=== PATIENT | male | born 2000 | race Caucasian/White ===

== ENCOUNTER → 2018-01-15 | Outpatient (CLI) | payer BC ==
--- NOTE | 2018-01-15 16:41 | Diagnostic Imaging Report ---
INDICATION: Dyspnea with chest tightness over the last two days. FINDINGS: PA and lateral views. Lungs are well aerated. There is no evidence of air-trapping. There are no infiltrates. No evidence of segmental atelectasis. Heart is not enlarged. There is no pulmonary edema. No hilar adenopathy. No pneumothorax or pleural effusion. No bony abnormalities. IMPRESSION: Normal PA and lateral chest. Dictated by: Dictated on workstation # [id number]
== END ==
LOC: RAD 15:48
PROVIDERS: ATTEND Nurse Practitioner Family
DX: R06.00 Dyspnea, unspecified (principal); R07.89 Other chest pain
CPT/HCPCS: 71046

== ENCOUNTER → 2018-05-02 | Outpatient (CLI) | payer BC ==
--- NOTE | 2018-05-02 12:20 | Diagnostic Imaging Report ---
PROCEDURE: MR imaging abdomen without contrast. TECHNIQUE: Multiplanar, multisequence MR imaging of the abdomen was performed without contrast. INDICATION: Family history of pancreatic carcinoma (twin sister). There are no previous studies available for comparison. FINDINGS: The pancreas was visualized. The pancreas is not enlarged and there is no abnormal signal arising from the pancreas to suggest a mass lesion. The liver is homogeneous and not enlarged. There is no focal mass involving the liver and biliary tree is not abnormally distended. The gallbladder, bile duct, spleen, kidneys, adrenals, aorta and inferior vena cava are unremarkable for an acute abnormality. The stomach is partially filled with fluid and consequently difficult to assess. There is no obvious gastric abnormality evident. The lung bases are clear. There is no abnormal signal arising from the osseous structures to suggest bone edema or fracture. IMPRESSION: 1. There is no evidence for an acute abnormality of the abdomen. 2. The pancreas is homogeneous and does not appear to be enlarged. There is no sign of a pancreatic mass. 3. Given the patient's history, I would recommend that the patient undergo genetic testing for the pancreatic carcinoma gene. 4. These results were discussed with Kala Pace APRN. Dictated by: Dictated on workstation # [id number]
--- NOTE | 2018-05-02 14:52 | Diagnostic Imaging Report ---
PROCEDURE: MRI pelvis without contrast. TECHNIQUE: Multiplanar, multisequence MRI of the pelvis was performed without contrast. INDICATION: Pancreatic cancer. There are no prior studies available for comparison. There is no pelvic mass or free fluid collection evident. The urinary bladder and prostate gland are grossly unremarkable. There is no abnormal signal arising from the osseous structures to suggest bone edema or fracture. IMPRESSION: There is no acute abnormality of the pelvis. There is no sign of a mass lesion either. Dictated by: Dictated on workstation # [id number]
== END ==
LOC: RAD 09:28
PROVIDERS: ATTEND Nurse Practitioner Family
DX: C25.9 Malignant neoplasm of pancreas, unspecified (principal); Z80.0 Family history of malignant neoplasm of digestive organs
CPT/HCPCS: 72195; 74181

== ENCOUNTER → 2019-06-20 | Outpatient (CLI) | payer BC | LOC: RT 12:15 | PROVIDERS: ATTEND Family Medicine | DX: R06.00 Dyspnea, unspecified (principal) | CPT/HCPCS: 94060; 94726; 94729 ==

== ENCOUNTER → 2020-10-20 | Outpatient (CLI) | payer BC ==
[2020-10-20 14:58] LABS: BASOPHILS # (AUTO) 0.1 10^3/uL (0.0-0.1); BASOPHILS % (AUTO) 1 % (0-10); EOSINOPHILS # (AUTO) 0.1 10^3/uL (0.0-0.3); EOSINOPHILS % (AUTO) 1 % (0-10); HEMATOCRIT 46 % (40-54); HEMOGLOBIN 15.6 g/dL (13.3-17.7); LYMPHOCYTES # (AUTO) 3.5 10^3/uL (1.0-4.0); LYMPHOCYTES % (AUTO) 39 % (12-44); MEAN CORPUSCULAR HEMOGLOBIN 29 pg (25-34); MEAN CORPUSCULAR HGB CONC 34 g/dL (32-36); MEAN CORPUSCULAR VOLUME 85 fL (80-99); MEAN PLATELET VOLUME 9.1 fL (9.0-12.2); MONOCYTES # (AUTO) 0.7 10^3/uL (0.0-1.0); MONOCYTES % (AUTO) 8 % (0-12); NEUTROPHILS # (AUTO) 4.1 10^3/uL (1.8-7.8); NEUTROPHILS % (AUTO) 47 % (42-75); PLATELET COUNT 215 10^3/uL (130-400); WHITE BLOOD COUNT 8.8 10^3/uL (4.3-11.0)
[2020-10-20 15:27] LABS: ALANINE AMINOTRANSFERASE 50 U/L (0-55); ALBUMIN 4.3 GM/DL (3.2-4.5); ALKALINE PHOSPHATASE 81 U/L (40-136); BILIRUBIN,TOTAL 0.3 MG/DL (0.1-1.0); BUN/CREATININE RATIO 15; CALCIUM 9.2 MG/DL (8.5-10.1); CARBON DIOXIDE 24 MMOL/L (21-32); CHLORIDE 105 MMOL/L (98-107); CREATININE SERUM 0.96 MG/DL (0.60-1.30); GFR ESTIMATED > 60; GLUCOSE 90 MG/DL (70-105); POTASSIUM 4.2 MMOL/L (3.6-5.0); SODIUM 140 MMOL/L (135-145); TOTAL PROTEIN 7.1 GM/DL (6.4-8.2)
== END ==
LOC: CARD 14:12
PROVIDERS: ATTEND Family Medicine
DX: R07.9 Chest pain, unspecified (principal); M25.50 Pain in unspecified joint
CPT/HCPCS: 36415; 80053; 84443; 85025; 86038; 86431; 87430; 93005

== ENCOUNTER → 2021-03-30 | Outpatient (CLI) | payer BC ==
--- NOTE | 2021-03-30 16:40 | Diagnostic Imaging Report ---
EXAMINATION: US Scrotum w/ Duplex TECHNIQUE: Multiple realtime suarez images were obtained of the scrotum in various projections bilaterally. Color Doppler images were also obtained. HISTORY: Bilateral scrotal pain COMPARISON: None available. FINDINGS: The right testis has a homogeneous echogenic appearance without intratesticular mass or hyperemia, and measures 3.4 x 1.7 x 2.5 cm. The right epididymis contains a 0.2 cm cyst. No extratesticular mass. No hydrocele or varicocele. The left testis has a homogeneous echogenic appearance without intratesticular mass or hyperemia, and measures 4.0 x 1.6 x 2.0 cm. The left epididymis is normal. No extratesticular mass. No hydrocele or varicocele. Color and pulsed Doppler imaging demonstrates symmetric, flow with normal arterial waveforms obtained from each testis. IMPRESSION: 1. Unremarkable scrotal ultrasound. Dictated by: Dictated on workstation # [id number]
== END ==
LOC: RAD 14:34
PROVIDERS: ATTEND Family Medicine
DX: N44.2 Benign cyst of testis (principal)
CPT/HCPCS: 76870